=== PATIENT | male | born 1945 | race Caucasian/White ===

== ENCOUNTER → 2016-10-09 | Outpatient (CLI) | payer BC ==
[~2016-10-09] MED LIST: ATEN-173 PO; GABA-113 PO; LANS30CA12 PO; VERA1TAB PO
[2016-10-09 13:09] LABS: BLOOD UREA NITROGEN 21 mg/dl (7-18); BUN/CREATININE RATIO 20.9 (10-20); CALCIUM 8.5 mg/dl (8.5-10.1); CARBON DIOXIDE 24 mmol/L (21-32); CHLORIDE 112 mmol/L (98-107); GLUCOSE 109 mg/dl (70-99); POTASSIUM 4.3 mmol/L (3.5-5.1); SODIUM 144 mmol/L (136-145)
== END | disposition home or self-care (01) ==
LOC: C.LABBFT 07:57
PROVIDERS: ATTEND Internal Medicine
DX: I10 Essential (primary) hypertension (principal)

== ENCOUNTER → 2017-03-26 | Outpatient (CLI) | payer BC ==
[2017-03-26 13:01] LABS: ESTIMATED AVERAGE GLUCOSE 120 mg/dl; HA1C FLAG Normal (Normal)
[2017-03-26 13:29] LABS: ALT/SGPT 25 U/L (12-78); AST/SGOT 16 U/L (15-37); BLOOD UREA NITROGEN 20 mg/dl (7-18); BUN/CREATININE RATIO 16.4 (10-20); CALCIUM 8.5 mg/dl (8.5-10.1); CARBON DIOXIDE 23 mmol/L (21-32); CHLORIDE 112 mmol/L (98-107); CHOLESTEROL 178 mg/dl (0-200); GLUCOSE 106 mg/dl (70-99); SODIUM 143 mmol/L (136-145); TRIGLYCERIDES 208 mg/dl (0-150); VERY LOW DENSITY LIPOPROT CALC 42 mg/dl
[2017-03-26 13:39] LABS: ALB/GLOB RATIO 1.3 (0.9-2); ALKALINE PHOSPHATASE 63 U/L (45-117); CHOLESTEROL/HDL RATIO 5.7; HDL CHOLESTEROL 31 mg/dl; LDL CHOLESTEROL CALCULATED 105 mg/dl
== END | disposition home or self-care (01) ==
LOC: C.LABBFT 07:31
PROVIDERS: ATTEND Internal Medicine
DX: I10 Essential (primary) hypertension (principal); R73.01 Impaired fasting glucose; Z12.5 Encounter for screening for malignant neoplasm of prostate

== ENCOUNTER → 2017-06-25 | Outpatient (CLI) | payer BC | END | disposition home or self-care (01) | LOC: C.RDSM 14:49 | PROVIDERS: ATTEND Family Medicine | DX: M25.562 Pain in left knee (principal); M17.12 Unilateral primary osteoarthritis, left knee; M23.204 Derangement of unspecified medial meniscus due to old tear or injury, left knee ==

== ENCOUNTER → 2017-12-03 | Outpatient (CLI) | payer BC ==
[~2017-12-03] MED LIST changes: +OPTIRAY 320 IV PRN
--- NOTE | 2017-12-03 13:32 | DIAGNOSTIC IMAGING REPORT ---
CT OF THE ABDOMEN AND PELVIS WITH CONTRAST CLINICAL HISTORY: Left lower quadrant abdominal pain. Diverticulitis. COMPARISON STUDY: CT of the abdomen and pelvis September 21, 2015. TECHNIQUE: Following IV administration of 94 mL of [id number], axial images of the abdomen and pelvis were obtained from the lung bases to the proximal femurs. Images were reviewed in the axial, sagittal, and coronal planes. IV contrast was administered without complication. A dose lowering technique was utilized adhering to the principles of ALARA. CT DOSE: 1040.12 mGycm FINDINGS: A few hepatic cysts are noted. These are unchanged. The spleen, adrenal glands and pancreas are unremarkable. There is no biliary or pancreatic ductal dilatation. There are suspected left-sided parapelvic cysts. A few subcentimeter renal lesions are too small to characterize but likely reflect cysts. There is left colon diverticulosis without evidence for acute diverticulitis. There is no evidence for a bowel obstruction. The appendix is not visualized but there is no right lower quadrant inflammation. There is no lymphadenopathy. There is no ascites. No pneumatosis, free air or portal venous gas is present. There are no enlarged abdominal or pelvic lymph nodes. There are no suspicious osseous lesions. IMPRESSION: 1. No acute process within the abdomen or pelvis. 2. Left colon diverticulosis without evidence for acute diverticulitis. 3. Probable left-sided parapelvic cysts. Collecting system dilatation could appear similar although is considered less likely. No ureteral calculi. 4. Several punctate right renal calculi. Electronically signed by: Noé Ivory M.D. 12/03/2017 1:30 PM Dictated Date/Time: 12/03/2017 1:23 PM
== END | disposition home or self-care (01) ==
LOC: C.CTS 11:59
PROVIDERS: ATTEND Physician Assistant Medical
DX: R19.04 Left lower quadrant abdominal swelling, mass and lump (principal); R10.814 Left lower quadrant abdominal tenderness

== ENCOUNTER 2024-10-03 06:12 | Observation (INO) ==
--- NOTE | 2024-08-26 10:09 | PAT Medication Instructions ---
Medication Instructions Date of Service August 26, 2024 Home Medications Medication Instructions Recorded atorvastatin 10 mg tablet 10 mg PO QPM #90 tabs 11/12/23 atorvastatin 10 mg tablet 10 mg PO QPM ascorbic acid (vitamin C) 1,000 mg tablet 1 g PO DAILY cholecalciferol (vitamin D3) 50 mcg (2,000 unit) capsule 50 mcg PO DAILY hydrochlorothiazide 25 mg tablet 25 mg PO QAM lansoprazole 30 mg capsule,delayed release 30 mg PO QAM losartan 100 mg tablet 100 mg PO QAM tamsulosin 0.4 mg capsule 0.4 mg PO QPM DO NOT take the morning of surgery ascorbic acid (vitamin C) 1,000 mg tablet 1 g PO DAILY cholecalciferol (vitamin D3) 50 mcg (2,000 unit) capsule 50 mcg PO DAILY hydrochlorothiazide 25 mg tablet 25 mg PO QAM losartan 100 mg tablet 100 mg PO QAM Take morning of surgery With a small sip of water, OTHERWISE NOTHING TO EAT OR DRINK AFTER MIDNIGHT: lansoprazole 30 mg capsule,delayed release 30 mg PO QAM Take evening before surgery atorvastatin 10 mg tablet 10 mg PO QPM tamsulosin 0.4 mg capsule 0.4 mg PO QPM Other Notes If you have any questions please call us at [phone] or [phone] or [phone] or [phone]
--- NOTE | 2024-09-03 14:43 | Anesthesiology Consultation ---
Date of Service September 03, 2024 Assessment & Plan (1) Encounter for pre-operative examination: - Infectious disease screening: Per assessment on 09/03/24- No known recent infectious disease contacts or current infectious disease symptoms. - Outpatient joint assessment: Pt currently scheduled for inpatient pathway. If surgeon requests review for outpatient joint pathway, patient is not recommended candidate for outpatient joint program from anesthesia standpoint based on available information. - PCP/wellness visit (07/28/24): "Encounter for Medicare annual wellness exam.. completed today, annual influenza provided.. Hyperlipidemia.. c/w atorvastatin, follow with lipid. Will monitor liver enzymes with AST and ALT since on statin medication.. Hypertension.. c/w with current, within appropriate limits. Will monitor liver enzymes with AST and ALT since on statin medication.. Impaired fasting glucose.. follow with hgb a1c" Chart Review Chart Review: Acceptable Risk for Surgery and Patient seen in Pre Admission Testing Teaching & Discussion Pre-Anesthesia Teaching/Discussion Notes: Instructed NPO after midnight before surgery,except medications with 15 cc of water. Medication instructions provided according to the PAT guidelines. History Surgery Operation Date: 10/03/24 08:00 Proposed Procedures p Right Total Knee Arthroplasty - Davian Gates, DO Height/Weight Height: 6 ft Weight: 97.3 kg Allergies Allergy/AdvReac Type Severity Reaction Status Date / Time rosuvastatin AdvReac Unknown fatigue, Verified 08/25/24 14:55 muscle aches, blurred vision Medications Home Medications Medication Instructions Recorded Confirmed Last Taken atorvastatin 10 mg tablet 10 mg PO QPM #90 tabs 11/12/23 08/25/24 Unknown ascorbic acid (vitamin C) 1,000 mg 1 g PO DAILY 01/09/24 08/25/24 Unknown tablet cholecalciferol (vitamin D3) 50 50 mcg PO DAILY 01/09/24 08/25/24 Unknown mcg (2,000 unit) capsule hydrochlorothiazide 25 mg tablet 25 mg PO QAM 08/25/24 08/25/24 Unknown lansoprazole 30 mg capsule,delayed 30 mg PO QAM 08/25/24 08/25/24 Unknown release losartan 100 mg tablet 100 mg PO QAM 08/25/24 08/25/24 Unknown tamsulosin 0.4 mg capsule 0.4 mg PO QPM 08/25/24 08/25/24 Unknown Past Medical History Medical History BPH (benign prostatic hyperplasia) GERD (gastroesophageal reflux disease) History of COVID-19 (2019) History of diverticulitis 1+ year ago History of lipoma 07/22/21 soft tissue neck: Lipoma seen at the point of interest corresponding to palpable mass- stable, no dysphagia Hyperlipidemia "Borderline" Hypertension Impaired fasting glucose Lumbar radiculopathy Osteoarthritis Sinus node dysfunction Possible, Per MNP cardio 2021, no indication for anything further at that time and f/u PRN > Good functional status and no cardiopulmonary complaints at PAT visit 09/03/24 Exercise / Class Metabolic Activity II 4-5 Yardwork/Stairs/Walk up hill (one FS: No CP, no SOB) Past Family History Family History Father Myocardial infarction Family/Other Coronary heart disease Sister Breast cancer Lung cancer Other No family history of adverse response to anesthesia No family history of bleeding disorder Denies family history of Ovarian cancer Prostate cancer Colorectal cancer Past Surgical History Surgical History History of appendectomy As child History of cataract surgery (2018) R/L History of tonsillectomy and adenoidectomy As child History of tooth extraction with implants Hx of colonoscopy with polypectomy Multiple polyps Hx of eye surgery R/L laser Hx of vasectomy Past Anesthesia History No Hx of Anesthesia Complications and No Family Hx of Anesthesia Complications History of PONV No Hx of PONV and No Hx of Motion Sickness Social History Smoking Status: Never smoker Do You Dip or Chew Tobacco: No Hx Alcohol Use: Yes Alcohol type: beer alcohol intake frequency: a few times a week Hx Substance Use: No substance use type: does not use Review of Systems Patient denies chest pain, shortness of breath, dyspnea on exertion, fever, chills, cough, wheezing, palpitations. Physical Exam Vital Signs BP 126/76 P 64 TEMP 98.0 SP02 95%RA RESP 16 Physical Full cervical extension range of motion. Full TMJ range of motion. TMD 3 finger breaths Mallampati Score I Dentition: lower partial Lungs: clear throughout to auscultation Cardiac: regular rate and rhythm, no murmurs noted Spine: normal Carotid arteries: negative bruit Extremities: no LE edema Lab Results Anesthesia Preop Results Results Anesthesia Widget: WBC 7.46 K/ul (4.8-10.8) 09/03/24 Hgb 13.4 g/dl (14.0-18.0) L 09/03/24 Hct 39.0 % (42.0-52.0) L 09/03/24 Plt 189 K/uL (130-400) 09/03/24 Na 141 mmol/L (136-145) 09/03/24 K 3.7 mmol/L (3.5-5.1) 09/03/24 Cl 108 mmol/L (98-107) H 09/03/24 CO2 26 mmol/L (21-32) 09/03/24 BUN 21 mg/dl (6-23) 09/03/24 Creat 1.39 mg/dl (0.6-1.4) 09/03/24 Glucose Level 112 mg/dl (70-99(Fasting)) H 09/03/24 PT 10.3 Seconds (9.0-12.0) 09/03/24 PTT 27 Seconds (21-31) 09/03/24 INR 0.9 (0.9-1.1) 09/03/24 HA1c 5.8 % (4.5-5.6) H 09/03/24 Blood Type A Positive 09/03/24 Antibody Screen NEGATIVE 09/03/24 Testing Electrocardiogram Date: 09/03/24 NSR at 60bpm. "Normal ECG" Chest X-Ray Date: 09/03/24 FINDINGS: No lines and tubes are seen. The cardiomediastinal silhouette is normal. The lungs are clear. No evidence of pleural effusion or pneumothorax. IMPRESSION: No acute chest disease. Stress Test Date: 08/14/22 Type: exercise Negative exercise stress ECG/echo for ischemia at 92% MPHR. Normal stress echo at 7.0 METS. No significant valvular pathology. Other Testing Cardiac event monitor Date: 07/26/2022 The underlying rhythm throughout the study was sinus rhythm with rates ranging from 47-92 bpm. Average rate 61 bpm. Occasional isolated premature supraventricular beats and rare supraventricular couplets. 11 episodes of nonsustained supraventricular tachycardia. Frequent preventricular beats accounting for 1.39% of all beats. Occasional ventricular couplets and occasional ventricular trigeminy. 1 8 beat run of an accelerated idioventricular rhythm at rate of 86 bpm. No inappropriate pauses. No conduction abnormalities noted. 1 patient triggered event associated with sinus rhythm without ectopy at 99 bpm.
[2024-10-03] MEDS ORDERED: DEXAMETHASONE SOD INJ 4 MG/ML VIAL ONE (06:17)
[2024-10-03] MEDS ORDERED: EPINEPHrine INJ 1 MG/ML AMP ONE (06:17)
[2024-10-03] MEDS ORDERED: BUPIVACAINE 0.5 % 5 MG/1 ML PF 10ML VIAL ONE (06:17)
[2024-10-03] MEDS ORDERED: BUPIVACAINE 0.25% PF 30 ML VIAL ONE (06:17)
--- NOTE | 2024-10-03 06:37 | History & Physical Bridge Note ---
Date of Service October 03, 2024 History & Physical Bridge Note I have examined the patient, reviewed the History & Physical and in the interval since the performance of the History & Physical I have noted the following changes of clinical significance: no changes noted
[2024-10-03] MEDS ORDERED: PROPOFOL IV EMULSION 10 MG/ML 20 ML VIAL IV ONE ×5 (06:55→08:57)
[2024-10-03] MEDS: GABAPENTIN 300 MG CAP PO SCH (07:04)
[2024-10-03] MEDS: dexAMETHasone**PF** 10 MG/ML VIAL IV SCH (07:04)
[2024-10-03] MEDS: LR 500ML BOLUS, THEN 15ML/HR IV SCH (07:04)
[2024-10-03] MEDS: ACETAMINOPHEN 500 MG TAB PO SCH ×2 (07:04→14:38)
[2024-10-03] MEDS: FAMOTIDINE 20 MG TAB PO SCH (07:04)
[2024-10-03] MEDS: LR 60ML/HR IV SCH (07:05)
[2024-10-03] MEDS ORDERED: ONDANSETRON INJ 2 MG/ML 2 ML VIAL IV PRN ×2 (07:17→11:43)
[2024-10-03] MEDS ORDERED: ATROPINE SULFATE 0.1 MG/ML 10ML SYR IV PRN (07:17)
[2024-10-03] MEDS ORDERED: ePHEDrine sulfate 50 MG/ML AMP IV PRN (07:17)
[2024-10-03] MEDS ORDERED: PROMETHAZINE HCL 6.25 MG in SODIUM CHLORIDE 0.9% 50 ML IV PRN (07:17)
[2024-10-03] MEDS ORDERED: fentaNYL citrate PF 100 MCG/2 ML VIAL IV PRN (07:17)
[2024-10-03] MEDS: TRANEXAMIC ACID 1,000 MG **IV Pre-op IV SCH (07:48)
[2024-10-03] MEDS: ceFAZolin 2000MG 2,000 MG/15 ML SYR IV SCH (07:59)
[2024-10-03] MEDS ORDERED: ePHEDrine sulfate 50 MG/5 ML SYR ONE (08:34)
[2024-10-03] MEDS: ROPIV 0.5% 246mg, Ketorolac 30mg, EPINEPHrine 0.5mg in NSS INFIL SCH (08:43)
[2024-10-03] MEDS: ORTHO JOINT ANESTHETIC ONE (08:43)
[2024-10-03] MEDS: TRANEXAMIC ACID 1,000 MG **IV Intra-op IV SCH (09:15)
--- NOTE | 2024-10-03 09:16 | Operative Report ---
PG Post Operative Report Pre & Post Diagnosis Operation Date: 10/03/24 08:00 Pre-Op Diagnosis: Right Knee Osteoarthritis Post-Op Diagnosis: Right Knee Osteoarthritis I identified the patient and participated in the time-out.: Yes Procedure Operation Date: 10/03/24 08:00 Actual Procedures p Right Total Knee Arthroplasty, Cemented(Right) - Davian Gates DO Surgeon Davian Gates DO Policy Director Christiano Layne PA-C Estimated Blood Loss 50 Findings Consistent with Post-Op Diagnosis Specimens Right femoral and tibial bone Description of Procedure Implants used: I used a [employer] total knee arthroplasty system with a size 9 standard femur, F tibia, 34 oval patella, and a size 12 medial congruent polyethylene bearing. All components were cemented in place with Biomet cement. [facility] for the above procedure. He was seen in the preoperative holding area and the operative extremity was identified and signed. He was given a preoperative antibiotic, TXA, a spinal anesthetic and an adductor nerve block. He was taken back to the operating room and laid on the table in supine position. He was given basic sedation. The operative knee was then prepped and draped in sterile fashion. A timeout was done, and the patient and the operative extremity was properly identified. A midline incision was made directly over the patella. Dissection was taken down to the extensor mechanism. A subvastus arthrotomy was used. The medial retinaculum was released and the fat pad was mostly excised. The knee was flexed and the ACL, PCL, and meniscus were removed. A drill was sent down the center of the femoral canal followed by an intramedullary tyra. Off that tyra a distal femoral cutting block was placed. 9 mm was resected off the distal femur at 5 of valgus. A posterior referencing AP sizing guide was then placed on the distal femur. The femur measured to be a size 9. 2 drill holes were placed in 3 of external rotation. A 4-in-1 cutting block was then impacted into place. Anterior, posterior, and chamfer cuts were then made. The proximal tibia was then exposed. An external tibial alignment guide was placed. A tibial cut guide was then anchored in place and the proximal tibia was then resected. The posterior aspect of the knee was then opened up and any additional meniscus fragments and osteophytes were removed. The tibia measured to be a size F. The tibial plate was then placed in the appropriate rotation and the tibia was drilled and punched. Trial components were then placed. I used a size 12 medial congruent polyethylene insert. The knee was brought through a full range of motion and felt to be stable. The peg holes for the femoral component were then drilled. The patella was then everted and 9 mm was resected off the posterior aspect of the patella. The patella measured to be a size 34 oval. 3 peg holes were then drilled. A trial patella was placed. The knee was once again brought through a full range of motion and felt to be stable. Trial components were then removed. The surrounding soft tissues were injected with 100 cc of an orthopedic pain control cocktail. All components were then cemented into place with Biomet cement. The final polyethylene insert was then snapped into place. Once cement was dry the tourniquet was deflated. Hemostasis was obtained. A dilute betadyne lavage was then done for 3 minutes. The joint was then irrigated with normal saline solution. The subvastus arthrotomy was then closed with #1 Vicryl suture. The skin was closed with 2-0 Vicryl, 3-0V lock suture, and tiffanie. A soft compressive dressing was placed. He was then transferred to a hospital bed and taken to the postanesthesia care unit in stable condition. He tolerated the procedure well. Christiano Layne PA-C, was present for the entire procedure. He was critical for patient positioning, prepping, draping, retraction exposure, wound closure and application of sterile dressing. I attest to the content of the Intraoperative Record and any orders documented therein. Any exceptions are noted below.
--- NOTE | 2024-10-03 09:59 | XRay Report ---
XR knee RT 1 or 2V routine CLINICAL HISTORY: Surgical Post Op TECHNIQUE: 2 views of the right knee were obtained. Comparison: Comparison is made to knee radiographs 01/13/2015 FINDINGS: Patient is status post total knee arthroplasty with expected postsurgical changes including soft tiss ue swelling and subcutaneous emphysema. No periarticular lucency or hardware fracture is seen. IMPRESSION: Expected postoperative appearance status post placement of total knee arthroplasty. ACT 112: Negative or not required by law. Electronically signed by: Lawrence Barker M.D. 10/03/2024 9:57 AM
--- NOTE | 2024-10-03 11:09 | Anesthesiology Progress Note ---
Date of Service October 03, 2024 Anesthesia Post Procedure Vital Signs Vital Signs: Temp Pulse Resp BP Pulse Ox O2 Del Method O2 Flow Rate 10/03/24 10:55 65 14 102/56 L 96 Room Air 10/03/24 10:45 71 12 99/54 L 96 Room Air 10/03/24 10:35 67 15 107/64 95 Room Air 10/03/24 10:25 65 20 105/57 L 93 Room Air 10/03/24 10:15 70 13 95/61 L 93 Room Air 10/03/24 10:05 67 21 102/59 L 96 Oxymask 4 10/03/24 09:55 68 14 102/59 L 97 Oxymask 4 10/03/24 09:45 72 15 101/60 96 Oxymask 8 10/03/24 09:37 36.8 C 82 15 100/56 L 94 Oxymask 8 10/03/24 07:12 36.5 C 72 20 131/68 95 Room Air Transfer of Care Handoff Completed per policy Notes Mental Status: alert / awake / arousable Patient Amnestic to Procedure: Yes Nausea / Vomiting: adequately controlled Pain: adequately controlled Airway Patency, RR, SpO2: stable & adequate BP & HR: stable & adequate Hydration State: stable & adequate Neuraxial Anesthesia: was administered and sensory block is resolving Anesthetic Complications: no major complications apparent and Pt Satisfied with anesthetic care
[2024-10-03] MEDS ORDERED: NALOXONE HCL 0.4 MG/1 ML VIAL/CARP IV PRN (11:43)
[2024-10-03] MEDS ORDERED: traMADol HCL 50 MG TABLET PO PRN (11:43)
[2024-10-03] MEDS ORDERED: HYDROmorphone INJ 0.5 MG/0.5 ML SYR IV PRN (11:43)
[2024-10-03] MEDS ORDERED: bisacodyL 10 MG SUPP PR PRN (11:43)
[2024-10-03] MEDS ORDERED: MAGNESIUM HYDROXIDE SUSP 30 ML UDC PO PRN (11:43)
[2024-10-03] MEDS ORDERED: METOCLOPRAMIDE HCL INJ 5 MG/ML 2 ML VIAL IV PRN (11:43)
[2024-10-03] MEDS: KETOROLAC TROMETHAMINE 15 MG/ML VIAL IV SCH (12:46)
[2024-10-03] MEDS: ceFAZolin 1000MG 1,000 MG/7.5 ML SYR IV SCH (16:34)
[2024-10-03] MEDS: oxyCODONE HCL IR 5 MG TAB (IMMEDIATE RELEASE) PO PRN (16:49)
[2024-10-03] MEDS: ASPIRIN 81 MG ECTAB PO SCH (20:52)
[2024-10-03] MEDS: TAMSULOSIN HCL 0.4 MG CAP PO SCH (20:53)
[2024-10-03] MEDS: DOCUSATE SODIUM 100 MG CAP PO SCH (20:53)
[2024-10-03] MEDS: SENNA 8.6 MG TAB PO SCH (20:53)
[2024-10-03] MEDS: ATORVASTATIN 10 MG TAB PO SCH (20:53)
[2024-10-04 03:29] VITALS: O2SAT 95
--- NOTE | 2024-10-04 06:54 | Orthopedic Progress Note ---
Date of Service October 04, 2024 Assessment & Plan (1) Status post right knee replacement: Overall he is doing very well. He is not having much pain in the right knee. He will be seen by physical therapy today for ambulation and range of motion exercises. He is on aspirin for DVT prophylaxis. The nursing staff can change his dressing after physical therapy. He will follow-up with orthopedics in 2 weeks. Rock Correa was seen and examined at bedside this morning. Overall he is doing very well. He is not having much pain in the right knee. He has been up and ambulating to the bathroom. He has no complaints.. Review of Systems All systems reviewed & are unremarkable except as noted in HPI & below. Physical Exam On physical exam of the right knee, the dressing is clean and dry. His leg is out full extension. He has active dorsiflexion and plantarflexion of his right ankle.. Results & Data Results & Data Laboratory Results . Diagnostic Findings Postoperative x-rays of the right knee show the prosthesis to be in anatomic alignment without any evidence of fracture, dislocation, or loosening.. PG Care Time/CCT Total # of Minutes Spent Total Time Spent with Patient: Total time spent is greater than 50% in coordination of care (as documented) at patient's floor/unit and/or counseling patient: Coding Level of Care Code 24563 Post Operative Follow-Up Diagnoses Status post right knee replacement Z96.651
--- NOTE | 2024-10-04 06:55 | Discharge Summary ---
Date of Service October 04, 2024 Principal Diagnosis Same as "Discharge Diagnosis" noted below under Discharge Instructions. Discharge Exam On physical exam of the right knee, the dressing is clean and dry. His leg is out full extension. He has active dorsiflexion and plantarflexion of his right ankle.. Discharge Data Procedures Performed Operation Date: 10/03/24 08:00 Actual Procedures p Right Total Knee Arthroplasty, Cemented(Right) - Davian Gates DO Ordered Studies 10/03/24 05:00 US - OR guided needle placemen Routine Hospital Course (1) Status post right knee replacement: On October 03, 2024 Sunny arrived at [facility] and underwent a right knee replacement without complication. He had a spinal anesthetic. Postoperatively he was started on aspirin for DVT prophylaxis and transferred to the general orthopedic floors. His hospital course was uneventful. On postop day #1, his vital signs were stable and his pain is well-controlled. He was able to participate well with physical therapy doing ambulation and range of motion exercises. He was then discharged to home. He will follow-up with orthopedics in 2 weeks. PG Care Time/CCT Total # of Minutes Spent Total Time Spent with Patient: Total time spent is greater than 50% in coordination of care (as documented) at patient's floor/unit and/or counseling patient: Discharge Plan Discharge Items Patient Disposition: Home - Self-Care Reason For Visit: Right Knee Arthritis Discharge Diagnosis: Right knee replacement Activity: Per Instructions section Non-emergency contact: Surgeon Call non-emergency contact if: your wound has increased redness and your wound has increased drainage Follow-up/Referrals: Wilton Chamberlain DO [Primary Care Provider] - Diet: Regular Addtl Attending Provider Instructions: Activity and Therapy Recommendations: * If you are using [facility] then therapy will be provided at your home until they feel you have accomplished all of your goals. * If you are using [facility] then Physical Therapy will be provided until they feel you are ready to start Outpatient Physical Therapy. * If you are not using home therapy then Outpatient Physical Therapy should start about 3-5 days from your day of surgery. Therapy will last about 6-10 weeks * It is important not to put a pillow under your knee when you are relaxing or sleeping. It is just as important to make sure you are getting your knee perfectly straight as it is to regain your knee bend. * You were shown a series of exercises in the hospital. Do these exercises three times each day including the exercises you were shown in physical therapy. * Get up and walk several times each day. For the first four weeks, try not to stand or walk for more than one hour at a time. If you do stand or walk for more than one hour, you will not hurt anything, but your leg will likely swell. * As you feel comfortable, you may change from the walker or crutches to a cane and then to independent walking. Medications: * Narcotic You will likely be sent home from the hospital with a prescription for the narcotic pain medication that worked best throughout your stay. * Cefadroxil -take the antibiotic twice a day for 10 days to help prevent infection. * Aspirin Most patients will be required to take Aspirin 81mg twice a day for 6 weeks after surgery. This is obtained [id number] and a prescription is not necessary. * Other medications may be prescribed for specific circumstances. If you have any questions, please call the office at . * Resume previous home medications unless otherwise instructed TEDs/Elastic Stockings: The white elastic stockings help limit swelling and prevent blood clots from forming in your legs.~ The more you wear them, the more they work. Wear them for six weeks. Dressing Care: The dressing can be changed after physical therapy on postop day #1. Daily dry dressing changes for a few days, especially if the incision is still draining some. If the incision is not draining then you may leave the tiffanie open to air. If there is a little bit of drainage or if the tiffanie are getting stuck on your clothing then cover the incision with a dry dressing. The tiffanie will be removed at your 2 week follow-up appointment. Showering: You may shower 5 days from the day of surgery as long as the incision is no longer draining. You may shower with the tiffanie exposed. Let soapy water run over the tifafnie and pat them dry. Do not scrub or soak the incision. Diet: You may resume your previous diet. Things To Watch For: * Drainage from the incision site that occurs more than one week after your surgery. * Increased redness at the incision site. * Fever above 102 degrees Fahrenheit. * Unusual chest pain or shortness of breath. * Call [facility] at with any of the above problems Follow-Up Visit: Follow-up with Dr. Gates's office 2-3 weeks after your day of surgery. We will remove your tiffanie and answer any questions. If you have any additional questions or concerns, Dr Gates is usually in the office at the same time and will be available An appointment was probably scheduled when you signed-up for surgery in the office. If you have any questions call Office Instructions: More detailed instructions as well as Frequently Asked Questions were provided in a folder by our office when you signed-up for surgery. Please review these instructions when you get home. If you have any further questions or concerns, please feel free to call the office at [phone] Pending Studies at Discharge: No Stand-Alone Forms: [facility], Smoking Cessation Medications and DC Order Prescriptions: New cefadroxil 500 mg capsule 500 mg PO BID 10 Days Qty: 20 0RF oxycodone 5 mg tablet 5 mg PO Q6H PRN (Reason: pain) Qty: 30 0RF aspirin 81 mg Tablet,Delayed Release (Dr/Ec) 81 mg PO BID 42 Days Qty: 84 0RF Continued atorvastatin 10 mg tablet 10 mg PO QPM Qty: 90 3RF losartan 100 mg tablet See Rx Instructions .ROUTE .COMPLEX Qty: 90 3RF Dose Instruction: TAKE 1 TABLET EVERY DAY Rx Instructions: TAKE 1 TABLET EVERY DAY lansoprazole 30 mg capsule,delayed release(DR/EC) See Rx Instructions .ROUTE .COMPLEX Qty: 90 3RF Dose Instruction: TAKE 1 CAPSULE EVERY DAY Rx Instructions: TAKE 1 CAPSULE EVERY DAY ascorbic acid (vitamin C) 1,000 mg tablet 1 g PO DAILY cholecalciferol (vitamin D3) 50 mcg (2,000 unit) capsule 50 mcg PO DAILY tamsulosin 0.4 mg capsule 0.4 mg PO QPM hydrochlorothiazide 25 mg tablet 25 mg PO QAM Rx Instructions: TAKE 1 TABLET BY MOUTH DAILY Discharge Orders: Discharge Order (Routine); Ordered 10/04/24 Ordered By: Davian Gates Admission Data Admit Date/Time: 10/03/24 09:40 Attending Provider: Davian Gates Admit Provider: Davian Gates Primary Care Provider: Wilton Chamberlain
[2024-10-04 07:43] VITALS: BP 129/67; PULSE 61; RESP 18; TEMP 97.7
[2024-10-04] MEDS: dexAMETHasone 4 MG TAB PO SCH (08:51)
[2024-10-04] MEDS: MULTIVITAMIN TAB PO SCH (08:51)
[2024-10-04] MEDS: LOSARTAN POTASSIUM 50 MG TAB PO SCH (08:51)
[2024-10-04] MEDS: PANTOprazole 40 MG TAB PO SCH (08:51)
[2024-10-04] MEDS: hydroCHLOROthiazide 25 MG TAB PO SCH (08:51)
== END 2024-10-04 10:42 | disposition home or self-care (01) ==
LOC: 3E 06:12 → ASU 06:12